=== PATIENT | female | born 1950 | race Caucasian/White ===

== ENCOUNTER 2016-04-24 07:39 | Emergency (ER) | payer MEDICARE, BC ==
--- NOTE | 2016-04-24 08:10 | ERNOTE ---
Lower Extremity HPI - Narrative Date of Service: 04/24/16 - General Lower Extremities Pain: ankle: right Time Seen by Provider: 04/24/16 08:00 Source: patient Exam Limitations: no limitations - Immun/Allergies/Home Medications Immunizations: IMMUNIZATION HX History of Influenza Vaccine Yes Hx Pneumococcal Vaccination No Allergies/Adverse Reactions: Allergies Allergy/AdvReac Type Severity Reaction Status Date / Time No Known Allergies Allergy Verified 04/24/16 07:48 Home Medications: HOME MEDICATIONS Calcium Carbonate/Vitamin D3 [Calcium 600 + Vit D 400 Tablet] 1 tab PO BID 06/09 [Last Taken Unknown] Multivitamins [Multivitamin Dash] 1 cap PO DAILY 06/09/14 [Last Taken Unknown] [place] Oil/[place]-3 Fatty Acids [Fish Oil] 1,200 mg PO DAILY 01/19/16 [Last Taken Unknown] - History of Present Illness Narrative: Patient was playing pickleball Friday and when she stepped forward she head a loud pop in the back of her right ankle. Immediate pain and feeling like she cannot step down. No fall, no other injuries. Pain in back of ankle. No focal N/T/W but toes have felt somewhat tingly. No acute focal knee or hip pain. Pain worse with walking. Never had it before. has not seen anyone else for this. Occurred: other - Friday, 48 hours Location of Incident: other - Pickle ball Method of Injury: Reports: other - happened with planting her foot Reason for Fall: Reports: other - no fall Loss of Consciousness: Reports: no loss of consciousness Modifying Factors - (Improves): Reports: movement Modifying Factors - (Worsens): Reports: rest Associated Symptoms: Reports: popping sensation. Denies: unable to bear weight , weakness Other Injuries: Reports: none Subsequent Symptoms: Denies: motor loss Prior Treament: Reports: other - none Review of Systems - Review of Systems Constitutional: Present: no symptoms reported Musculoskeletal: Present: See HPI Skin: Present: other - no laceratiopn - Patient's Past Medical History Patient History - Medical: Anxiety, Depression, Other Patient History - Cancer: Skin Patient History - Surgical Procedures: Total Knee Replacement, Other - Family History Mother Family History - Medical: , No pertinent hx Family History - Cardiac/Respiratory: CHF, TIA Sister Family History - Medical: No pertinent hx Family History - Cardiac/Respiratory: No pertinent hx - Social History Living Situations: home Alcohol Use: occasionally Drug Use: none Physical Exam - Physical Exam General Appearance: Present: alert, no apparent distress Eye Exam: Normal inspection: bilateral Neck: Present: normal inspection Respiratory: Present: no respiratory distress Cardiovascular/Chest: Present: normal peripheral pulses Peripheral Pulses: N=norm/S=strong/W=weak/B=bound/A=absent: Dorsalis-pedis (R): Normal Extremity Exam: Present: other - Swelling right ankle. No specific hip or knee tendenress. Mild tendenress right ankle/Achilles area. Loss of plantar flexion strength right ankle with abnormal Anne test. No foot tendenress. No compartment syndrome. No laceration. Ankle otherwise stable. There does appear to be a palpable defect in the Achilles area. Neurological Exam: Present: other - Plantar flexion limited right d/t injury. NO other clear focal motor deficits. Sensation to LT intact Skin Exam: Present: other - no laceration ED Progress - Vital Signs Patient's Vital Signs:: I have reviewed the patient's vital signs. Vital Signs: Vital Signs 04/24/16 07:44 Temperature 35.8 C L Pulse Rate 80 Respiratory 12 Rate Blood Pressure 145/89 O2 Sat by Pulse 100 Oximetry - X-Ray X-Ray #1 X-Ray: ankle X-ray Comments: Reviewed report by radiology. No Fx - Progress/Reassessment Chief Complaint: Lower Extremity Pain/ Injury Progress:: Unchanged Progress Note-Subjective: 04/24/16 09:03 D/W Roque Jimenez. He will see the patient in the office at 11am today. No CAM boot avaiable in the ED but the office does have one so no weight bearing until seen in the office in 2 hours. Clinically Achilles tendon injury 04/24/16 09:04 Departure Clinical Impression: Ankle pain - Departure Disposition: Home self-care Condition: Stable Additional Instructions: Go to the Ortho office a little before 11am today to be seen. Orthopedics will see you at 11am. Rest. Ice. Return here for increased pain, numbness, tingling, weakness or if your condition worsens or changes in any way. Referrals: Josiah Hagan DO [Primary Care Provider] -
[2016-04-24 08:50] VITALS: BP 144/86
== END 2016-04-24 09:25 | disposition home or self-care (01) ==
LOC: ER 07:39
DX: M25.571 Pain in right ankle and joints of right foot (principal); X50.1XXA Overexertion from prolonged static or awkward postures, initial encounter; Y93.64 Activity, baseball